=== PATIENT | female | born 1975 | race Caucasian/White ===

== ENCOUNTER 2017-07-14 18:55 | Inpatient (IN) | payer BC ==
[~2017-07-14] VITALS: Ht 165.1 cm; Wt 78.0 kg
--- NOTE | ~2017-07-14 | PN ---
Unit #: [id number] #: [id number] Patient: OLGA LAYTON [id number] [facility] [address] [place] [address] [id number] MR#: [id number] NAME: OLGA LAYTON ROOM: 32 Age: 42 Sex: F Admission Date: 07/14/2017 : 1975 Attending Physician: Will Sams M.D. Admitting Physician: Will Sams M.D. Primary Care Physician: Primary Care Physician Ina HOLLY PROGRESS NOTES DATE 07/16/2017 DISCUSSION Olga is compliant with medications. She continues to have a rather distant and paranoid gaze with sparse speech. She has mild psychomotor stiffness as well. She is alert and oriented to person, location, and partially to situation and partially to time. Her memory and concentration are impaired. ASSESSMENT Bipolar mixed. PLAN Continue current treatment plan. Dictated by... Marti HowellH/bzg TD: 07/17/2017 08:31 JOB #: [id number] [facility] PROGRESS NOTES Page 1 of 1 X Will Sams MD X PROGRESS NOTE
--- NOTE | ~2017-07-14 | PA ---
Unit #: [id number] #: [id number] Patient: OLGA MOYER [id number] [facility] [address] [place] [address] [id number] I MR#: [id number] NAME: OLGA MOYER ROOM: P132 Age: 42 Sex: F Admission Date: 07/14/2017 : 1975 Date of Assessment: 07/15/2017 Attending Physician: Will Sams M.D. Admitting Physician: Will Sams M.D. Primary Care Physician: Primary Care Physician No PSYCHIATRIC ASSESSMENT INFORMANT(S) Patient, reliable. [facility]. CHIEF COMPLAINT Hallucinating. HISTORY OF PRESENT ILLNESS Ms. Moyer is a 42-year-old woman, who presented to the hospital in a nearly "catatonic" state, as described by the state comptroller. She felt extremely paranoid, watchful, and says that "they are tricking me." Her mother reports that she has been diagnosed with bipolar disorder in the past, and that her psychiatrist recommended inpatient treatment due to extreme hyperreligious beliefs, paranoia, and guardedness. The patient has had some recent stressors including teaching for alternative school and recently having increased stress on her job. She was admitted due to her clear decompensation in the outpatient setting. PAST PSYCHIATRIC HISTORY One hospitalization at this facility twenty years ago as well as previous hospitalizations at [facility], and outpatient treatment by Dr. Garcia. She has been taking lithium and alprazolam but doses and schedules are unknown. FAMILY PSYCHIATRIC HISTORY There is a significant family history of depression, anxiety, and bipolar disorder. There is one grandfather who has alcoholism. SOCIAL HISTORY The patient denied a history of childhood abuse or neglect. She is a heterosexual woman who has been with current boyfriend for the past three and a half years. 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 She has a tqrlb-cyiw-blv child with her current boyfriend. PAST MEDICAL HISTORY No chronic medical problems. MEDICATIONS Please see MAR. ALLERGIES Paroxetine. Unit #: [id number] #: [id number] Patient: OLGA MOYER SUBSTANCE ABUSE HISTORY None reported. MENTAL STATUS EXAM Ms. Moyer presented as a mildly disheveled woman, who appeared her stated age. She was guarded but cooperative with the examination. Her speech was slow and deliberate but easily understood. Musculoskeletal examination demonstrates psychomotor slowing. Her mood was sad and anxious with the flat affect. She was alert and fully oriented. Her memory and concentration were [id number]. Her thought processes were somewhat stilted and she had clear paranoia, hyperreligious beliefs, and significant guardedness. She did admit to responding to internal stimuli. Her insight and judgment were fair. Fund of knowledge and abstraction were fair. She had no suicidal ideation, intent, or plan. She had no thoughts of harming others. ASSETS The patient is educated, employed, and voluntary. LIABILITIES Include apparent decompensation with current medications. ADMITTING DIAGNOSES War I: Bipolar disorder, most recent episode mixed with psychotic features. War II: No diagnosis. War III: None acute. War IV: War V: PSYCHIATRIC PLAN Olga was admitted and placed on suicide precautions. We are going to initially restart her previous medications and monitor for response, making clinical decisions and further changes as appropriate. A pastoral counseling consult will be ordered at her request and she will enroll in psychotherapy groups and activities on the unit. TREATMENT GOALS Resolution of psychosis, improvement in insight, improvement in coping skills. DISCHARGE PLANNING Follow up with her current doctor. ESTIMATED LENGTH OF STAY Five days. Dictated by... Will Sams M.D. SHAKIR/cristino TD: 07/16/2017 08:43 Unit #: [id number] #: [id number] Patient: OLGA MOYER JOB #: [id number] PSYCHIATRIC ASSESSMENT Page 1 of 1 X Will Sams MD X PSYCHIATRIC ASSESSMENT
--- NOTE | ~2017-07-14 | HP ---
Unit #: [id number] #: [id number] Patient: OLGA LAYTON [id number] [place] [address] [id number] I MR#: [id number] NAME: OLGA LAYTON ROOM: 32 Age: 42 Sex: F Admission Date: 07/14/2017 : 1975 Attending Physician: Will Sams M.D. Admitting Physician: Will Sams M.D. Primary Care Physician: Primary Care Physician No HISTORY AND PHYSICAL HISTORY OF PRESENT ILLNESS Olga is a 42 year old admitted to [address] [place] [address] with psychotic behavior. She is a poor historian so her history is taken from her chart. PAST MEDICAL HISTORY 1. History of severe depression. a. History of ECT. PAST SURGICAL HISTORY Nothing reported. ALLERGIES Paxil (hives). SOCIAL HISTORY Smokes on occasion. Drinks alcohol rarely and has admitted to using marijuana on occasion. FAMILY HISTORY Medically noncontributory. REVIEW OF SYSTEMS She does not answer any questions appropriately. There are no reports of nausea, vomiting or diarrhea. She has had no cough or increased temperature. CURRENT MEDICATIONS 1. Matheny 300 mg q.a.m., 600 mg q.h.s. 2. Xanax 0.25 mg daily. 3. Milk of Magnesia p.r.n. 4. Maalox p.r.n. 5. Tylenol p.r.n. PHYSICAL EXAMINATION GENERAL: Alert, well-nourished, in no apparent distress. VITAL SIGNS: Blood pressure 142/80, heart rate 80, respirations 16, temperature 98.6. SKIN: Warm and dry without rash or lesion. HEENT: Normocephalic. TMs not viewed. Oral and nasal passages clear. Conjunctivae clear. PERRLA. EOMs intact. NECK: Supple without lymphadenopathy or thyromegaly. HEART: Regular rate and rhythm without murmur. LUNGS: Clear. Unit #: [id number] #: [id number] Patient: OLGA LAYTON ABDOMEN: Soft, nontender. : Not done. EXTREMITIES: No evidence of cyanosis, clubbing or edema. Moves all without focal deficit. NEUROLOGICAL: Unable to complete extended exam. She does move all extremities without focal deficit. Hand information technology program manager is equal and gait is normal. IMPRESSION Psychiatric admission. RECOMMENDATIONS PSYCHIATRIC: Per psychiatrist. MEDICAL: See no contraindication to participate in facility's activities. MEDICAL PROGNOSIS Good. MEDICAL CONDITION Stable. Dictated by... Ana Jones P.A.-C. for Marti Hall/linda TD: 07/15/2017 20:54 JOB #: [id number] HISTORY AND PHYSICAL Page 1 of 1 X Ana Jones X HISTORY AND PHYSICAL
--- NOTE | ~2017-07-14 | PN ---
Unit #: [id number] #: [id number] Patient: OLGA LAYTON [id number] [facility] [address] [place] [address] [id number] MR#: [id number] NAME: OLGA LAYTON ROOM: 32 Age: 42 Sex: F Admission Date: 07/14/2017 : 1975 Attending Physician: Will Sams M.D. Admitting Physician: Will Sams M.D. Primary Care Physician: Primary Care Physician Ina HOLLY PROGRESS NOTES DATE 07/19/2017 DISCUSSION Olga shows considerable improvement today. Her affect is much more variable. She says that she has "memory problems" for the last several days of her psychosis, her mood is less labile with a brighter affect. She is alert and oriented to person, location, and partially to situation and partially to time. Memory and concentration are fair, and her thought processes are less rambling and less psychotic today. Her lithium level is therapeutic in the low range at 0.6. Liver and kidney functions are normal. ASSESSMENT Bipolar mixed with psychotic features. PLAN Continue current treatment plan and anticipate discharge soon based on the patient's recent improvement. Dictated by... Marti HowellH/bzg TD: 07/20/2017 11:38 JOB #: [id number] [facility] PROGRESS NOTES Page 1 of 1 X Will Sams MD X PROGRESS NOTE
--- NOTE | ~2017-07-14 | PN ---
Unit #: [id number] #: [id number] Patient: OLGA LAYTON [id number] [facility] [address] [place] [address] [id number] I MR#: [id number] NAME: OLGA LAYTON ROOM: 32 Age: 42 Sex: F Admission Date: 07/14/2017 : 1975 Attending Physician: Will Sams M.D. Admitting Physician: Will Sams M.D. Primary Care Physician: Primary Care Physician Ina HOLLY PROGRESS NOTES DATE 07/17/2017 DISCUSSION Olga continues to have a staring gait, appearing to "look past you," and minimal speech. She appears to be watchful and paranoid in responding to internal stimuli. She has had enuresis during group and does not seem to appreciate the appropriateness. She is compliant with medications. ASSESSMENT Bipolar mixed. PLAN We will check a lithium level and CMP in the morning. Dictated by... Marti Howell/cristino TD: 07/19/2017 09:02 JOB #: [id number] [facility] PROGRESS NOTES Page 1 of 1 X Will Sams MD PROGRESS NOTE
--- NOTE | ~2017-07-14 | PN ---
Unit #: [id number] #: [id number] Patient: TED MOYER [id number] [facility] [address] [place] [address] [id number] I MR#: [id number] NAME: TED MOYER ROOM: 32 Age: 42 Sex: F Admission Date: 07/14/2017 : 1975 Attending Physician: Will Sams M.D. Admitting Physician: Will Sams M.D. Primary Care Physician: Primary Care Physician Ina HOLLY PROGRESS NOTES DATE July 18, 2017 DISCUSSION Ms. Moyer continues to be compliant with medications, but has a rather staring gait, minimal interactive, and appears ongoing psychotic. She is alert and oriented to person and situation only. Memory and concentration are poor and her thought processes remain delusional. ASSESSMENT Bipolar mixed with psychotic features. PLAN We will await the outcome of this morning's lithium level and blood tests, and make other treatment decisions based on them. Dictated by... Marti Howell/cristino TD: 07/19/2017 11:54 JOB #: [id number] [facility] PROGRESS NOTES Page 1 of 1 X Will Sams MD PROGRESS NOTE
[2017-07-15 09:43] LABS: BASOPHIL# 0.1 X10e3 (0-0.3); BASOPHIL% 1.3 % (0-2.5); EOSINOPHIL# 0.1 X10e3 (0-0.7); EOSINOPHIL% 1.4 % (0.0-7.0); HEMATOCRIT 39.5 % (35.0-45.0); HEMOGLOBIN 13.5 gm/dL (12.0-16.0); LYMPHOCYTE# 1.8 X10e3 (1.0-3.5); LYMPHOCYTE% 16.5 % (17.0-45.0); MEAN CELL VOLUME 92.5 FL (83-96); MEAN CORPUSCULAR HEMOGLOBIN 31.6 PG (28-34); MEAN CORPUSCULAR HGB CONC 34.2 g/dL (30-36); MONOCYTE# 0.6 X10e3 (0-1.0); MONOCYTE% 5.9 % (3.0-12.0); NEUTROPHIL% 74.9 % (40-75); PLATELET COUNT 382 X10e3 (140-420); RED BLOOD COUNT 4.28 X10e (3.90-5.30); RED CELL DISTRIBUTION WIDTH 13.3 % (11.0-15.5); WHITE BLOOD COUNT 10.7 X10e3 (4.0-10.5)
[2017-07-15 09:49] LABS: DIFF IND NO
[2017-07-15 10:15] LABS: ALBUMIN SERUM 4.5 g/dL (3.5-5.0); BILIRUBIN,TOTAL 0.7 mg/dL (0.2-2.0); CALCIUM SERUM 9.6 mg/dL (8.4-10.2); CREATININE SERUM 0.7 mg/dL (0.6-1.4); GLOM FILT RATE Estimated 106.9 mL/min (>60); POTASSIUM 3.9 mmol/L (3.5-5.1); PROTEIN TOTAL SERUM 7.6 g/dL (6.0-8.3)
[2017-07-19 10:20] LABS: ALBUMIN SERUM 4.2 g/dL (3.5-5.0); BILIRUBIN,TOTAL 0.3 mg/dL (0.2-2.0); BUN/CREATININE RATIO 21.11; CALCIUM SERUM 9.6 mg/dL (8.4-10.2); CREATININE SERUM 0.9 mg/dL (0.6-1.4); GLOM FILT RATE Estimated 78.9 mL/min (>60); POTASSIUM 4.1 mmol/L (3.5-5.1); PROTEIN TOTAL SERUM 7.4 g/dL (6.0-8.3)
== END 2017-07-20 12:15 | disposition home or self-care (01) | DRG 885 ==
LOC: P1S 22:26
PROVIDERS: Psychiatry & Neurology Psychiatry
DX: F31.5 Bipolar disorder, current episode depressed, severe, with psychotic features (principal); F17.210 Nicotine dependence, cigarettes, uncomplicated; Z81.1 Family history of alcohol abuse and dependence; Z81.8 Family history of other mental and behavioral disorders
CPT/HCPCS: 80053; 80178; 84703; 85025; J0696; J3486